=== PATIENT | male | born 1950 | race African-American/Black ===

== ENCOUNTER 2021-03-23 02:43 | Inpatient (IN) | payer MEDICARE, MEDICAID ==
[~2021-03-23] VITALS: Ht 175.3 cm; Wt 95.3 kg
[2021-03-23 03:11] LABS: HEMATOCRIT. 34.9 % (42.0-52.0); HEMOGLOBIN. 11.8 g/dL (14.0-18.0); MEAN PLATELET VOLUME 9.7 fl (7.4-10.4); PLATELET 144 x1000/uL (130-400); RED BLOOD CELL COUNT 3.67 mill/uL (4.7-6.1); RED CELL DISTRIBUTION WIDTH 14.3 % (11.6-14.6)
[2021-03-23 03:18] LABS: CHLORIDE 110 mEq/L (98-107)
[2021-03-23] MEDS ORDERED: SODIUM CHLORIDE 0.9% 1,000 ML IV ONE (04:00)
[2021-03-23 05:01] LABS: ATYPICAL LYMPHOCYTES 1; PLATELET ESTIMATE NORMAL
[2021-03-23 06:57] LABS: CLARITY URINE CLEAR (CLEAR); COLOR URINE YELLOW (YELLOW); KETONES URINE NEGATIVE (NEGATIVE); LEUKOCYTE ESTERASE URINE NEGATIVE (NEGATIVE); NITRITE URINE NEGATIVE (NEGATIVE); OCCULT BLOOD URINE NEGATIVE (NEGATIVE); PROTEIN URINE TRACE (NEGATIVE); SPECIFIC GRAVITY URINE 1.016 (1.005-1.030); UROBILINOGEN URINE 0.2 E.U./dL (0.2-1.0)
[2021-03-23 07:25] LABS: *AMPHETAMINES SCREEN URINE NEGATIVE (NEGATIVE); *BARBITURATES SCREEN URINE NEGATIVE (NEGATIVE); CANNABINOID URINE SCREEN NEGATIVE (NEGATIVE); METHADONE URINE SCREEN NEGATIVE (NEGATIVE); OPIATES URINE SCREEN NEGATIVE (NEGATIVE); PHENCYCLIDINE URINE SCREEN NEGATIVE (NEGATIVE)
[2021-03-23 07:26] LABS: *BENZODIAZEPINES SCREEN URINE NEGATIVE (NEGATIVE); *COCAINE SCREEN URINE NEGATIVE (NEGATIVE)
[2021-03-23] MEDS ORDERED: MAGNESIUM/ALUMINUM HYDROXIDE/SIMETHICONE 30ML UDC PO PRN (08:45)
[2021-03-23] MEDS ORDERED: ONDANSETRON HCL 4MG/2ML INJ IV PRN (08:45)
[2021-03-23] MEDS ORDERED: NITROGLYCERIN 0.4MG TABLET SL SL PRN (08:45)
[2021-03-23] MEDS ORDERED: ACETAMINOPHEN 325MG TABLET PO PRN ×2 (08:45)
[2021-03-23] MEDS ORDERED: IPRATROPIUM/ALBUTEROL 0.5-3(2.5)MG/3ML NEB NEB PRN (08:45)
[2021-03-23] MEDS ORDERED: DOCUSATE SODIUM 100MG CAPSULE PO PRN (08:45)
[2021-03-23] MEDS ORDERED: DEXTROSE 50% WATER 50ML SYRINGE IV PRN (08:45)
[2021-03-23] MEDS ORDERED: GUAIFENESIN 200MG/10ML SUGAR FREE UDC PO PRN (08:45)
[2021-03-23] MEDS ORDERED: CLONIDINE 0.1MG TABLET PO PRN (08:45)
[2021-03-23] MEDS: BLOOD SUGAR DIAGNOSTIC STRIP TEST SCH ×4 (09:00→21:00)
[2021-03-23] MEDS: INSULIN LISPRO 100 UNITS/ML SUBCUT SCH ×4 (09:00→21:00)
[2021-03-23 10:29] LABS: FOLIC ACID (FOLATE) SERUM 8.7 ng/mL (>5.38)
[2021-03-23] MEDS: FAMOTIDINE 20MG TABLET PO SCH (10:44)
[2021-03-23] MEDS: ENOXAPARIN 40MG/0.4ML SYR SUBCUT SCH (10:44)
[2021-03-23] MEDS: ASCORBIC ACID 500 MG TABLET PO SCH ×2 (10:45→21:15)
[2021-03-23] MEDS: CHOLECALCIFEROL (D3) 1000 UNIT TABLET PO SCH (10:45)
[2021-03-23] MEDS: ASPIRIN 325MG EC TABLET PO SCH (10:45)
[2021-03-23] MEDS: ZINC SULFATE 220 MG ( 50 ) CAPSULE PO SCH (10:51)
[2021-03-23] MEDS ORDERED: FUROSEMIDE 40MG/4ML VIAL IV SCH (11:00)
[2021-03-23 12:00] VITALS: BP 129/90
[2021-03-23] MEDS ORDERED: METF-874 PO (12:56)
[2021-03-23] MEDS ORDERED: FURO-151 MT (12:56)
[2021-03-23] MEDS ORDERED: IBUP-2029 PO (12:56)
[2021-03-23] MEDS ORDERED: DONE5TAB7 MT (12:56)
[2021-03-23] MEDS ORDERED: ASPI-1406 MT (12:56)
[2021-03-23] MEDS ORDERED: LACT10SO7 PO (12:56)
[2021-03-23] MEDS ORDERED: POTA20TA82 PO (12:56)
[2021-03-23] MEDS ORDERED: AMLO10TA80 MT (12:56)
[2021-03-23] MEDS ORDERED: TAMS-11 PO (12:56)
[2021-03-23] MEDS ORDERED: HYDR25TA MT (12:56)
[2021-03-23] MEDS ORDERED: DONE5TAB7 PO (12:56)
[2021-03-23] MEDS ORDERED: lantus (12:57)
[2021-03-23] MEDS: CITRIC ACID/SODIUM CITRATE SOLN 30ML UDC PO SCH ×2 (13:05→17:01)
[2021-03-23] MEDS: LOSARTAN POTASSIUM 50 MG TABLET PO SCH ×2 (13:06→21:15)
[2021-03-23] MEDS: FUROSEMIDE 40MG/4ML VIAL IVP SCH (13:06)
[2021-03-23] MEDS ORDERED: PNEUMOCOCCAL 23-VAL P-SAC VAC 0.5 ML IM ONE (13:15)
[2021-03-23] MEDS ORDERED: INFLUENZA VACCINE 05/PF 0.5 ML SYRINGE IM ONE (13:15)
[2021-03-23 13:42] VITALS: BP 129/90
[2021-03-23 16:00] VITALS: BP 107/67
[2021-03-23 16:51] LABS: CREATINE KINASE 140 IU/L (39-308)
[2021-03-23 16:52] LABS: CREATINE KINASE MB FRACTION 1.1 ng/mL (0.5-3.6)
[2021-03-23 20:00] VITALS: BP 129/79
[2021-03-23] MEDS ORDERED: ZOLPIDEM TARTRATE 5MG TABLET PO PRN (21:00)
[2021-03-24] VITALS: BP 136/73
[2021-03-24 04:00] VITALS: BP 153/81
[2021-03-24 06:41] LABS: CHLORIDE 107 mEq/L (98-107)
[2021-03-24 07:00] LABS: CREATINE KINASE 160 IU/L (39-308); PHOSPHORUS 2.9 mg/dL (2.5-4.9)
[2021-03-24 07:04] LABS: HEMATOCRIT. 34.2 % (42.0-52.0); HEMOGLOBIN. 11.7 g/dL (14.0-18.0); MEAN CORPUSCULAR HEMOGLOBIN 32.1 pg (28.0-32.0); MEAN CORPUSCULAR VOLUME 94.4 fL (80.0-94.0); MEAN PLATELET VOLUME 9.5 fl (7.4-10.4); PLATELET 140 x1000/uL (130-400); RED BLOOD CELL COUNT 3.63 mill/uL (4.7-6.1); RED CELL DISTRIBUTION WIDTH 14.3 % (11.6-14.6)
[2021-03-24] MEDS: BLOOD SUGAR DIAGNOSTIC STRIP TEST SCH ×4 (07:20→20:49)
[2021-03-24] MEDS: INSULIN LISPRO 100 UNITS/ML SUBCUT SCH ×4 (07:50→20:51)
[2021-03-24 08:00] VITALS: BP 104/71
[2021-03-24] MEDS ORDERED: LACTULOSE 20G/30ML UDC PO NR (09:00)
[2021-03-24] MEDS ORDERED: LACTULOSE 20G/30ML UDC PO PRN (09:15)
[2021-03-24] MEDS: CHOLECALCIFEROL (D3) 1000 UNIT TABLET PO SCH (09:36)
[2021-03-24] MEDS: LOSARTAN POTASSIUM 50 MG TABLET PO SCH ×2 (09:36→21:00)
[2021-03-24] MEDS: ASCORBIC ACID 500 MG TABLET PO SCH ×2 (09:36→20:35)
[2021-03-24] MEDS: ASPIRIN 325MG EC TABLET PO SCH (09:36)
[2021-03-24] MEDS: ZINC SULFATE 220 MG ( 50 ) CAPSULE PO SCH (09:36)
[2021-03-24] MEDS: FAMOTIDINE 20MG TABLET PO SCH (09:36)
[2021-03-24] MEDS: POTASSIUM CHLORIDE 20MEQ TABLET SR PO SCH ×2 (09:37→16:43)
[2021-03-24] MEDS: CITRIC ACID/SODIUM CITRATE SOLN 30ML UDC PO SCH ×3 (09:37→16:43)
[2021-03-24] MEDS: ENOXAPARIN 40MG/0.4ML SYR SUBCUT SCH (09:37)
[2021-03-24] MEDS: FUROSEMIDE 40MG/4ML VIAL IVP SCH (09:37)
[2021-03-24 12:00] VITALS: BP 106/75
[2021-03-24 16:00] VITALS: BP 103/72
[2021-03-24 16:51] LABS: PLATELET ESTIMATE NORMAL
[2021-03-24 20:00] VITALS: BP 100/61
[2021-03-25] VITALS (7 sets, daily range): BP systolic 94–124; BP diastolic 50–74
[2021-03-25] MEDS: INSULIN LISPRO 100 UNITS/ML SUBCUT SCH ×4 (06:49→20:00)
[2021-03-25] MEDS: BLOOD SUGAR DIAGNOSTIC STRIP TEST SCH ×4 (06:49→20:00)
[2021-03-25] MEDS: POTASSIUM CHLORIDE 20MEQ TABLET SR PO SCH ×2 (09:00→17:00)
[2021-03-25] MEDS: CITRIC ACID/SODIUM CITRATE SOLN 30ML UDC PO SCH ×3 (10:02→18:20)
[2021-03-25] MEDS: LACTULOSE 20G/30ML UDC PO SCH ×2 (10:02→18:20)
[2021-03-25] MEDS: LOSARTAN POTASSIUM 50 MG TABLET PO SCH (10:03)
[2021-03-25] MEDS: ZINC SULFATE 220 MG ( 50 ) CAPSULE PO SCH (10:03)
[2021-03-25] MEDS: ASPIRIN 325MG EC TABLET PO SCH (10:03)
[2021-03-25] MEDS: CHOLECALCIFEROL (D3) 1000 UNIT TABLET PO SCH (10:03)
[2021-03-25] MEDS: FUROSEMIDE 40MG/4ML VIAL IVP SCH (10:04)
[2021-03-25] MEDS: FAMOTIDINE 20MG TABLET PO SCH (10:04)
[2021-03-25] MEDS: ASCORBIC ACID 500 MG TABLET PO SCH ×2 (10:04→19:59)
[2021-03-25] MEDS: ENOXAPARIN 40MG/0.4ML SYR SUBCUT SCH (10:05)
[2021-03-25 13:06] LABS: A/G RATIO 0.9 (0.7-1.7); ALBUMIN 3.8 g/dL (2.9-4.4); ALPHA-1-GLOBULIN 0.2 g/dL (0.0-0.4); ALPHA-2-GLOBULIN 1.3 g/dL (0.4-1.0); BETA GLOBULIN 1.1 g/dL (0.7-1.3); GAMMA GLOBULINS 1.7 g/dL (0.4-1.8); GLOBULIN TOTAL 4.2 g/dL (2.2-3.9); M-SPIKE 1.1 g/dL (Not Observed)
== END 2021-03-25 21:45 | DRG 91 ==
LOC: ER 02:43 → 6EST 05:34 → ENRESERV 08:36 → 6EST 18:09
PROVIDERS: ADMIT Internal Medicine; ATTEND Internal Medicine
DX: G92.8 Other toxic encephalopathy (principal); N17.0 Acute kidney failure with tubular necrosis; I69.354 Hemiplegia and hemiparesis following cerebral infarction affecting left non-dominant side; E87.2 Acidosis; E44.0 Moderate protein-calorie malnutrition; D89.2 Hypergammaglobulinemia, unspecified; E86.0 Dehydration; D63.8 Anemia in other chronic diseases classified elsewhere; E11.22 Type 2 diabetes mellitus with diabetic chronic kidney disease; F03.90 Unspecified dementia, unspecified severity, without behavioral disturbance, psychotic disturbance, mood disturbance, and anxiety; I12.9 Hypertensive chronic kidney disease with stage 1 through stage 4 chronic kidney disease, or unspecified chronic kidney disease; E11.21 Type 2 diabetes mellitus with diabetic nephropathy; N18.30 Chronic kidney disease, stage 3 unspecified; E11.51 Type 2 diabetes mellitus with diabetic peripheral angiopathy without gangrene; Z79.4 Long term (current) use of insulin; Z68.31 Body mass index [BMI] 31.0-31.9, adult
CPT/HCPCS: 36415; 70551; 71045; 76770; 80053; 80305; 81003; 82140; 82550; 82553; 82607; 82746; 82784; 82962; 83036; 83540; 83550; 83605; 83615; 83735; 83880; 84100; 84145; 84155; 84165; 84443; 84484; 85025; 86334; 87426; 93005; 93306; 93923; 93970; 99285; J1650; J1940; J7030